=== PATIENT | female | born 2000 ===

== ENCOUNTER 2019-02-01 17:55 | Emergency (ER) | payer SELFPAY ==
[~2019-02-01] VITALS: Ht 162.6 cm; Wt 55.6 kg
[2019-02-01 18:09] VITALS: BP 137/79; PULSE 104; RESP 17; Ht 162.6 cm; Wt 55.6 kg
== END 2019-02-01 19:47 | disposition left against medical advice (07) ==
LOC: FTE 17:55
DX: Z53.21 Procedure and treatment not carried out due to patient leaving prior to being seen by health care provider (principal)